=== PATIENT | male | born 1965 | race Two or more races ===

== ENCOUNTER 2020-09-02 21:49 | Emergency (ER) | payer SELFPAY ==
[~2020-09-02] VITALS: Ht 177.8 cm; Wt 82.6 kg
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
--- NOTE | 2020-09-02 23:08 | NUR ---
RADIOLOGY AT BEDSIDE
[2020-09-02] MEDS ORDERED: HYDROCODONE/APAP 5/325MG TABLET ONE (23:19)
[2020-09-02] MEDS ORDERED: HYDROCODONE/APAP 5/325MG TABLET PO ONE (23:30)
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
--- NOTE | 2020-09-03 00:36 | NUR ---
Patient is resting comfortably in bed. Easily aroused. VSS.
--- NOTE | 2020-09-03 01:29 | NUR ---
Patient discharged to home in stable condition. Written and verbal after care instructions given. Patient verbalizes understanding of instruction. ambulatory with a steady gait noted. pt [id number] no acute distress noted, resp even and unlabore.d advice pt not to drive or operate any machinery due to pt was given anrcotic medicine. pt verbalize understanding.
[2020-09-03 01:31] VITALS: BP 143/65
== END 2020-09-03 01:32 | disposition home or self-care (01) ==
LOC: ER 21:49
DX: S09.8XXA Other specified injuries of head, initial encounter (principal); M54.5 Low back pain; V49.59XA Passenger injured in collision with other motor vehicles in traffic accident, initial encounter; Y93.89 Activity, other specified; Y92.488 Other paved roadways as the place of occurrence of the external cause; Y99.8 Other external cause status
CPT/HCPCS: 70450-TC; 72110-TC